=== PATIENT | male | born 1995 | race Caucasian/White ===

== ENCOUNTER 2020-04-21 00:34 | Emergency (ER) | payer MEDICAID, OTHER, SELFPAY ==
[2020-04-21 00:39] VITALS: BP 131/76; PULSE 71; RESP 18; TEMP 37.7; O2SAT 99; BMI 18.4
--- NOTE | 2020-04-21 00:51 | ED.GENADULT ---
HPI - General Adult General Chief complaint: General Medical Stated complaint: Headache/Chills Time Seen by Provider: 04/21/20 00:36 Source: patient Mode of arrival: ambulatory Limitations: no limitations History of Present Illness HPI narrative: This is a 25-year-old male who presents after having been tested for COVID-19 2 weeks ago and was negative at that time but comes in with low fevers, cough, and concern for exposure at his family's store. In addition, patient is having body aches but denies any sore throat. Otherwise, patient denies any shortness of breath, chest pain / palpitations, GI symptoms, or symptoms. Related Data Allergies Allergy/AdvReac Type Severity Reaction Status Date / Time cuenca [CHERRIES] Allergy Unknown RASH/HIVES Verified 04/21/20 00:39 Review of Systems Review of Systems: Pertinent positives and negatives as stated in HPI 10 point review of systems is otherwise negative. PMFSH Past Medical History Source: nursing notes reviewed Medical History Ulcer Social History Social History Advance Directives: No Physical Exam Vital Signs: Vital Signs: Vital Signs Temp Pulse Resp BP Pulse Ox 04/21/20 00:39 99.8 F 71 18 131/76 99 Body Mass Index 18.4 VITAL SIGNS: Reviewed. GENERAL: Well developed, well nourished, in no acute distress. HEAD: Normocephalic/atraumatic, EYES: PERRLA, EOMI intact without pain, no nystagmus/pallor/icterus noted EARS: Ext canals without abnormality, TMs non-bulging and non-erythematous NOSE: Nares patent bilateral OROPHARYNX: no oral lesions noted, posterior pharynx clear and non-erythematous without noted tonsillar enlargement/erythema/exudates NECK: Supple, no adenopathy LUNGS: Normal breath sounds. No adventitious sounds or accessory muscle use. SpO2<99> CARDIOVASCULAR: Regular rate and rhythm without noted murmurs, no JVD or lower extremity edema. ABDOMEN: Soft, non-tender, non-distended with bowel sounds. No rigidity. No guarding. No palpable masses or hernias noted MUSCULOSKELETAL: No tenderness, deformities, or effusions noted on gross inspection. EXTREMITIES: No cyanosis, clubbing or edema. SKIN: Inspection of the skin reveals no rashes, ulcerations, jaundice, pallor, or petechiae. NEUROLOGIC: Alert and oriented x 4. Strength and sensation to light touch were grossly intact x 4. Course Course Course Narrative: This is a 25-year-old male with history and clinical presentation consistent with viral syndrome. There is no evidence of hypoxemia or patient being febrile. He will be swabbed for COVID-19 and was given instructions to self quarantine until he was called with results and discharged in stable condition. Discharge Plan Discharge Clinical Impression: Acute viral syndrome Patient Disposition: Home, Self-Care Instructions: Viral Syndrome (ED) Additional Instructions: 1. Tylenol 1000 mg, por v?a oral, cada 6 horas seg?n sea necesario para la temperatura y los ivana corporales. No exceda los 4000 mg en 24 horas. 2. Ibuprofeno 400 mg, por v?a oral con leche o alimentos, cada 6 horas seg?n sea necesario para la temperatura y los ivana corporales. 3. Incrementar la hidrataci?n de los fluidos especialmente con agua. 4. Debe permanecer en cuarentena hasta que lo llamen con los resultados de lee prueba COVID-19. 5. Regrese al departamento de emergencias si contin?a teniendo fiebre a pesar del tratamiento con Tylenol / ibuprofeno o si empeora la dificultad para respirar. El paciente y / o la angela reconocen kinjal comprendido los resultados (seg?n corresponda), el diagn?stico, el plan de tratamiento, la necesidad de seguimiento y los s?ntomas que deber?an impulsar el regreso a la nathalie de emergencias. Referrals: Physician,None [Primary Care Provider] - 2 days Print Language: Belarusian
== END 2020-04-21 01:09 | disposition home or self-care (01) ==
PROVIDERS: Emergency Provider Student in an Organized Health Care Education/Training Program
DX: B34.9 Viral infection, unspecified (principal); R51.9 Headache, unspecified; Z20.828 Contact with and (suspected) exposure to other viral communicable diseases
CPT/HCPCS: 99283; U0003

== ENCOUNTER 2020-04-29 14:59 | Outpatient (REF) | payer MEDICAID, SELFPAY | END 2020-04-29 15:00 | disposition home or self-care (01) | LOC: HO.LAB 14:59 | PROVIDERS: Visit Provider Internal Medicine | DX: Z20.828 Contact with and (suspected) exposure to other viral communicable diseases (principal) | CPT/HCPCS: C9803; U0003 ==

== ENCOUNTER 2020-06-17 16:35 | Outpatient (REF) | payer MEDICAID, SELFPAY | END 2020-06-17 16:36 | disposition home or self-care (01) | LOC: HO.LAB 16:35 | PROVIDERS: Visit Provider Internal Medicine | DX: Z20.828 Contact with and (suspected) exposure to other viral communicable diseases (principal) | CPT/HCPCS: C9803; U0003 ==

== ENCOUNTER 2020-07-29 13:59 | Outpatient (REF) | payer MEDICAID, OTHER, SELFPAY | END 2020-07-29 14:00 | disposition home or self-care (01) | LOC: HO.LAB 13:59 | PROVIDERS: Visit Provider Internal Medicine | DX: Z20.822 Contact with and (suspected) exposure to COVID-19 (principal) | CPT/HCPCS: 36415; C9803; U0003; U0005 ==

== ENCOUNTER 2020-08-14 16:00 | Outpatient (REF) | payer MEDICAID, OTHER, SELFPAY | END 2020-08-14 16:01 | disposition home or self-care (01) | LOC: HO.LAB 16:00 | PROVIDERS: Visit Provider Internal Medicine | DX: Z20.822 Contact with and (suspected) exposure to COVID-19 (principal) | CPT/HCPCS: 36415; C9803; U0003; U0005 ==

== ENCOUNTER 2020-08-21 15:58 | Outpatient (REF) | payer MEDICAID, OTHER, SELFPAY | END 2020-08-21 15:59 | disposition home or self-care (01) | LOC: HO.LAB 15:58 | PROVIDERS: Visit Provider Internal Medicine | DX: Z20.822 Contact with and (suspected) exposure to COVID-19 (principal) | CPT/HCPCS: 36415; C9803; U0003; U0005 ==

== ENCOUNTER 2021-12-18 09:22 | Emergency (ER) | payer MEDICAID, OTHER, SELFPAY ==
--- NOTE | ~2021-12-18 | XR_ITS ---
EXAMINATION: XR RIBS, LEFT CLINICAL INFORMATION: Fall COMPARISON: Previous chest x-ray November 2019 TECHNIQUE: 3 views of the left ribs and one view of the chest were obtained. FINDINGS: Lungs are clear. No consolidation, pneumothorax, or pleural effusion. The cardiomediastinal silhouette and pulmonary vasculature are normal. Osseous structures are unremarkable. Ribs are intact. No fractures are identified. XR/XR ribs LT min 3V w CXR1V IMPRESSION: Unremarkable examination.
--- NOTE | ~2021-12-18 | XR_ITS ---
EXAMINATION: XR KNEE, LEFT CLINICAL INFORMATION: Pain, swelling in limb COMPARISON: None TECHNIQUE: Four views of the left knee. FINDINGS: Bone alignment is normal. No fracture or dislocation is seen. The joint spaces are normal. There is no joint effusion. There may be mild soft tissue swelling over the upper anterior knee/patella and quadriceps tendon. XR/XR knee LT 4V IMPRESSION: No fracture or dislocation. Mild soft tissue swelling over the upper anterior knee.
--- NOTE | ~2021-12-18 | XR_ITS ---
EXAMINATION: XR ELBOW, LEFT CLINICAL INFORMATION: Fall. Pain. COMPARISON: None TECHNIQUE: AP, lateral, and oblique views of the left elbow. FINDINGS: The bones and soft tissues are normal. No fracture or joint effusion. Alignment is anatomic. Joint spaces are maintained. XR/XR elbow LT 2V IMPRESSION: Normal left elbow.
[2021-12-18 09:25] VITALS: BP 115/61; PULSE 64; RESP 18; TEMP 36.7; O2SAT 98; BMI 19.8
--- NOTE | 2021-12-18 10:19 | ED_ITS ---
HPI - Fall General Chief Complaint: Fall Stated Complaint: Fall T-1/L elbow & knee pain Time Seen by Provider: 12/18/21 09:40 Source: patient Mode of arrival: ambulatory History of Present Illness HPI Narrative: 26-year-old male with no significant past medical history presenting to the ED complaining of left elbow, left knee, left-sided rib pain s/p mechanical trip and fall on cement while playing with sun yesterday. Denies symptoms prior to fall, head trauma or LOC. Admits to abrasions to elbow and knee which he has been putting triple antibiotic ointment on. Ambulating with pain. Denies neck/back pain, numbness, tingling, weakness, SOB complaint: fall Onset (ago): day(s) Fall from: standing Related Data Previous Rx's Medication Instructions Recorded bacitracin 500 unit/gram topical 1 appl topical BID #30 grams 12/18/21 ointment ibuprofen 800 mg tablet 800 mg PO Q8H PRN pain #14 tabs 12/18/21 Allergies Allergy/AdvReac Type Severity Reaction Status Date / Time cuenca [CHERRIES] Allergy Unknown RASH/HIVES Verified 12/18/21 09:29 Review of Systems Review of Systems: Constitutional: No Fever, No Chills ENT/Mouth: No Ear Pain, No Nasal Congestion, No Sinus Pain, No Hoarseness, No sore throat, No Rhinorrhea, No Swallowing Difficulty Cardiovascular: + Chest wall pain, No SOB Respiratory: No Cough, No Sputum, No Wheezing Gastrointestinal: No Nausea, No Vomiting, No Diarrhea, No Constipation, No Abdominal pain Genitourinary: No Dysuria, No Urinary Frequency, No Hematuria, No Urinary Incontinence/retention, No Urgency, No Flank Pain Musculoskeletal: + joint pain, No Myalgias, No Joint Swelling Skin: + Skin Lesions, No rash Neuro: No Weakness, No Numbness, No Paresthesias Yes all other systems are reviewed and are negative [facility] Past Medical History Attestation statement: The following information was validated with the patient. Medical History Ulcer Social History Social History Advance Directives: No Advance Directives Information Provided: No Physical Exam Vital Signs: Vital Signs: Last Vital Signs Temp 98.1 F 12/18/21 09:25 Pulse 64 12/18/21 09:25 Resp 18 12/18/21 09:25 BP 115/61 12/18/21 09:25 Pulse Ox 98 12/18/21 09:25 O2 Del Method 12/18/21 09:25 BMI result Body Mass Index 19.8 Const: General: cooperative, healthy appearing and no acute distress Orientation/consciousness: patient oriented x3 Limitations: no limitations HEENT: Head: Yes normal to inspection and Yes atraumatic Ears: hearing grossly normal bilaterally General nose exam: Normal external nose present Face and sinus: Yes normal facial exam Eyes: General: appearance normal, both eyes and all related structures EOM: EOMs intact bilaterally Neck: Other: No midline cervical spinous tenderness Neck: Yes normal visual inspection and Yes no meningeal signs Chest: Other: + left-sided anterior lateral chest wall abrasions with mild tenderness. No crepitus. No flail chest. No ecchymosis Resp: Effort & Inspection: normal respiratory effort and no respiratory distress Auscultation: clear to auscultation bilaterally Cardio: Rate: regular rate Heart sounds: S1 normal heart sound present and S2 normal heart sound present GI: Inspection: Yes normal to inspection Palpation (GI): Soft to palpation, nontender, no guarding and not rigid : General: Yes no CVA tenderness Back/Spine/Pelvis: Other: No midline thoracic/lumbar spinous tenderness/step-off or deformity Back: no CVA tenderness Skin: Rashes: no rashes Wounds: no wounds Neuro: General: patient oriented x3, tone normal and no meningeal signs Gait exam (Neuro): Normal gait present Extrem: Other: Left elbow with noted abrasion. Nontender. Full range of motion intact including pronation/supination. Neurovascular intact distally Left knee with mild swelling and overlying abrasion. Tender to palpation. De creased full flexion and extension secondary to pain. Neurovascular intact distally Course Course Course Narrative: XR knee LT 4V IMPRESSION: No fracture or dislocation. Mild soft tissue swelling over the upper anterior knee. XR elbow LT 2V IMPRESSION: Normal left elbow. ? XR ribs LT min 3V w CXR1V IMPRESSION: Unremarkable examination. >> results discussed with patient with historical interpreter including worrisome signs and symptoms and strict return precautions. Alberto wrap apply to me for com fort and stability Procedures Orthopedic Splinting/Casting Injury #1: Side: left Lower Extremity Injury Location: knee Lower Extremity Immobilizer: Alberto wrap MDM - Fall MDM Narrative Medical decision making narrative: 26-year-old male with no significant past medical history presenting to the ED complaining of left elbow, left knee, left-sided rib pain s/p mechanical trip and fall on cement while playing with sun yesterday. On exam vital signs stable, NAD, nontoxic appearing, physical exams above. Concern for abrasions with sprain burst fractures. Low suspicion for intra-abdominal hematoma/bleeding Plan: X-rays, wound care Medical Records Attestation: I reviewed the patient's medical records. Lab Data Attestation: I reviewed the patient's lab results. Discharge Plan Discharge Clinical Impression: Abrasion, Fall, Acute knee pain, Rib contusion, Elbow pain Patient Disposition: Home, Self-Care Instructions: Bone Bruise (ED) Additional Instructions: Your x-rays do not show any acute fractures/breaks. You likely sprained your knee and have rib contusions/bruising Ice painful areas. Wear Alberto wrap for comfort and stability. Take Tylenol and Motrin for pain and swelling Continue to apply antibacterial ointment to your clots If areas look infected, or read, there is drainage or symptoms persist/worsen return to the emergency department Yane radiograf?as no muestran fracturas/roturas agudas. Es probable que se haya torcido la rodilla y tenga contusiones o moretones en las costillas Hielo en las ?reas dolorosas. Use la venda Alberto para mayor comodidad y estabilidad. [place] Tylenol y Motrin para el dolor y la hinchaz?n. Contin?e aplicando pomada antibacteriana a yane co?gulos Si las ?reas se baljeet infectadas o mayuri, hay drenaje o los s?ntomas persisten/empeoran, regrese al departamento de emergencias. Prescriptions: New bacitracin 500 unit/gram ointment 1 appl topical BID Qty: 30 0RF ibuprofen 800 mg tablet 800 mg PO Q8H PRN (Reason: pain) Qty: 14 0RF Referrals: Physician,None [Primary Care Provider] - 1 week (As needed) Print Language: Syriac
== END 2021-12-18 12:08 | disposition home or self-care (01) ==
PROVIDERS: Emergency Provider Emergency Medicine Emergency Medical Services
DX: S80.212A Abrasion, left knee, initial encounter (principal); S20.213A Contusion of bilateral front wall of thorax, initial encounter; M25.522 Pain in left elbow; R07.89 Other chest pain; W01.0XXA Fall on same level from slipping, tripping and stumbling without subsequent striking against object, initial encounter; Y93.9 Activity, unspecified; Y92.9 Unspecified place or not applicable; Y99.9 Unspecified external cause status; Z79.899 Other long term (current) drug therapy
CPT/HCPCS: 29505; 71101; 73070; 73564; 99283

== ENCOUNTER 2022-06-17 16:47 | Emergency (ER) | payer MEDICAID, OTHER, SELFPAY ==
--- NOTE | 2022-06-17 17:01 | ED_ITS ---
HPI - URI/Sore Throat General Chief Complaint: Upper Respiratory Symptoms Stated Complaint: flu like symptoms Time Seen by Provider: 06/17/22 18:13 Source: patient and steward/stewardess banquet Mode of arrival: ambulatory Limitations: language barrier History of Present Illness HPI Narrative: 27-year-old male here with flu-like symptoms since yesterday. Patient reports he was around several friends yesterday he with similar symptoms. Related Data Previous Rx's Medication Instructions Recorded bacitracin 500 unit/gram topical 1 appl topical BID #30 grams 12/18/21 ointment Allergies Allergy/AdvReac Type Severity Reaction Status Date / Time cuenca [CHERRIES] Allergy Unknown RASH/HIVES Verified 12/18/21 09:29 Review of Systems Review of Systems: Yes all other systems are reviewed and are negative Constitutional: Constitutional: Reports no additional constitutional complaints, Reports body ache(s), Reports chills, Reports fever(s), Reports headache(s) and Denies weakness Eyes: Eyes: Reports no additional eye complaints and Denies change in vision ENT: Reports system reviewed and no additional complaints, except as documented, Denies dizziness, Reports headache(s), Denies nasal congestion, Denies nasal discharge and Denies neck pain Cardiovascular: Cardiovascular: Reports no additional cardiovascular complaints, Denies chest pain, Denies leg edema and Denies dyspnea Respiratory: Respiratory: Reports no additional respiratory complaints, Denies cough and Denies dyspnea Gastrointestinal: Gastrointestinal: Reports no additional gastrointestinal complaints, Denies abdominal pain, Denies diarrhea, Denies nausea and Denies vomiting Genitourinary: Genitourinary: Denies urinary incontinence Musculoskeletal: Musculoskeletal: Reports no additional musculoskeletal complaints, Denies back pain, Denies arthralgias, Denies joint swelling, Denies neck pain, Denies numbness and Denies tingling Integumentary/Breasts: Skin/Breast: Reports system reviewed and no additional complaints, except as docu and Denies rash Neurologic: Reports system reviewed and no additional complaints, except as documented, Denies Abnormal speech present, Denies dizziness, Reports headache(s), Denies numbness, Denies tingling and Denies weakness PMFSH Past Medical History Attestation statement: The following information was validated with the patient. Source: old records reviewed and nursing notes reviewed Medical History Ulcer Social History Social History Advance Directives: No Advance Directives Information Provided: No Physical Exam Vital Signs: Vital Signs: Last Vital Signs Temp 99.8 F 06/17/22 17:02 Pulse 104 H 06/17/22 17:02 Resp 18 06/17/22 17:02 BP 101/70 06/17/22 17:02 Pulse Ox 98 06/17/22 17:02 O2 Del Method 06/17/22 17:02 BMI result Body Mass Index 20.0 Const: General: cooperative, healthy appearing, comfortable and no acute distress Orientation/consciousness: patient oriented x3 Limitations: no limitations HEENT: Head: Yes normal to inspection Ears: hearing grossly normal bilaterally and TM's normal bilaterally General nose exam: Normal external nose present Face and sinus: Yes normal facial exam Mouth: Normal oral and palatal mucosa present Throat: Yes posterior oropharynx normal, Yes tonsils normal and Yes uvula midline Eyes: General: appearance normal, both eyes and all related structures Pup ils: Equal, round and reactive pupils present Neck: Neck: Yes normal visual inspection, Yes full ROM, Yes no lymphadenopathy and Yes no meningeal signs Chest: Chest palpation & inspection: normal inspection of the chest Resp: Effort & Inspection: normal respiratory effort Auscultation: clear to auscultation bilaterally Cardio: Rate: regular rate Rhythm: regular rhythm Peripheral pulses: Peripheral pulses 2+ throughout GI: Inspection: Yes normal to inspection Palpation (GI): Soft to palpation and nontender Auscultation: normal bowel sounds Back/Spine/Pelvis: Thoracic/Lumbar Spine: thoracic and lumbar spine normal to inspection Skin: General skin exam: no rashes or lesions noted Neuro: General: patient oriented x3, no meningeal signs, no focal motor deficits and normal sensation to monofilament Cranial nerves: Yes Equal, round and reactive pupils present Cognition (Neuro): normal cognition Speech: No Abnormal speech present Gait exam (Neuro): Normal gait present Motor exam (neuro): 5/5 motor strength present throughout Extrem: General: Yes normal to inspection Course Course Course Narrative: This is a rapid medical exam. Deferred additional HPI, ROS and PE to primary provider. 27 yo male with history of heart murmur here with complaints of headache, chils, fever, back pain, body aches, since yesterday. Has been around friends who have had similar symptoms. Will send testing for flu, covid, rsv. VSS. Reevaluation(s) Reevaluation #1: This screen positive. Vitals are stable. Lungs are clear. Patient recommended to go home with supportive care. Reviewed worrisome signs and symptoms of when to return to the emergency room. Comfortable plan for discharge home. Medical Decision Making Medical Decision Making [facility] Narrative: 27-year-old male here with flu-like symptoms since yesterday. Will send testing for flu, COVID, RSV. Vitals are stable Differential Diagnosis Differential Diagnoses: The differential diagnosis associated with the presentation includes Influenza, viral syndrome Lab Data [facility] Lab Attestation statement: I reviewed the patient's lab results. Labs: Lab Results 06/17/22 Range/Units 17:12 Influenza Type A (PCR) POSITIVE A (Negative) Influenza Type B (PCR) NEGATIVE (Negative) RSV RNA Qual (PCR) NEGATIVE (Negative) SARS-CoV-2 RNA (RT-PCR) NEGATIVE (Negative) Prescription Management I considered prescription management with: Antiviral Flu screen is positive. Patient aware Tamiflu is available if he desires this. He declined treatment with Tamiflu. Discharge Plan Discharge Clinical Impression: Influenza Patient Disposition: Home, Self-Care Instructions: Influenza (ED) Additional Instructions: La prueba de gripe es negativa. Las pruebas de COVID y RSV son negativas. Aumenta los l?quidos, descansa. [place]terne Motrin y Tylenol para el dolor o la fiebre seg?n sea necesario. Prescriptions: No Action bacitracin 500 unit/gram ointment 1 appl topical BID Qty: 30 0RF Referrals: Physician,None [Primary Care Provider] - Print Language: Turkmen
[2022-06-17 17:02] VITALS: BP 101/70; PULSE 104; RESP 18; TEMP 37.7; O2SAT 98
--- OUTSIDE RECORDS SUMMARY | 2022-06-17 17:16 | XMS_ITS ---
:1995 Author Organization [facility] Address [address] [place] [address] Care Team Providers Name Role Phone Atif Shah Unavailable Unavailable PROBLEMS Type Condition ICD9-CM Code PXT81-SM Code Onset Condition SNO MED Code Dates Status Problem Gastritis, K29.70 Active 539818166 unspecified, without bleeding Problem Duodenal ulcer K26.4 Active 82123 001 with hemorrhage Problem Helicobacter B96.81 Active 2609977 0 pylori [H. pylori] as the cause of diseases classified elsewhere ALLERGIES Substance Reaction Event Type Date Status cherries Unknown Non Drug Allergy Apr, Active NSAID Unknown Non Drug Allergy Apr, Active Aspirin Unknown Drug Allergy Apr, Active ENCOUNTERS Encounter Location Date Diagnosis [place] [address] Apr, Duodenal ulcer with [facility] [address] [place], [place] hemorrhage K26.4 ; [id number] Gastritis, unspe cified, without bleeding K29.70 and Helicobacter pylori [H. pylori] as t he cause of diseases clas sified elsewhere B96.[address] Mar, [facility] [address] [place] [address] Dec, [facility] [address] [place] [address] IMMUNIZATIONS No Known Immunizations SOCIAL HISTORY Qualifiers Date Never Smoker REASON FOR REFERRAL FUNCTIONAL STATUS PLAN OF CARE Activity Details Follow Up prn Reason: VITAL SIGNS Weight 146 lbs 2020-04-22 Height 74 in 2020-04-22 BMI 18.74 kg/m2 2020-04-22 Temperature 98.2 degrees Fahrenheit 2020-04-22 Blood pressure systolic 000 mm Hg 2020-04-22 Blood pressure diastolic 00 mm Hg 2020-04-22 MEDICATIONS Medication Instructions Dosage Frequency Start End Date Duration Stat us Tylenol Active Famotidine 20 TAKE 1 TABLET 30 Acti ve MG BY MOUTH EVERY DAY AT BEDTIME START AFTER YOU HAVE FINISHED OMEPRAZOLE Omeprazole 20 Orally BID 1 12h 12 Dec, 10 days Active MG 2019 PROCEDURES Procedure Date Ordered Result Body Site UPPER GI ENDOSCOPY, BIOPSY December 17, 2019 PRECOLON VISIT MEDICARE MEDICAID GIC Apr 22, 2020 RESULTS Name Result Date Reference Range GI BIOPSY 2019-12-17 G.I. BIOPSY REASON FOR VISIT patient presents today for Ulcers , patient presents today for ulcer, ulcer, cancel appt Insurance Providers [facility] Health Member Patient Patient Patient Patient Patient Subscriber Subscriber Subscriber Group Insurance Plan Plan Plan Plan ID Relationship Address Phone Name Date of ID Name Date of No Type Insurance Insurance Insurance Coverage to Subscriber Address Phone Name Dates MEDICAID [id number] MEDICAID self TAE [id number] OF [facility] [address] [facility] [address] [facility] [place] [id number]
[2022-06-17 17:58] LABS: Influenza A PCR POSITIVE (Negative); Influenza B PCR NEGATIVE (Negative); Resp Syncy Virus RNA Qual PCR NEGATIVE (Negative); SARS COV2 PCR INHOUSE NEGATIVE (Negative)
== END 2022-06-17 18:20 | disposition home or self-care (01) ==
PROVIDERS: Nurse Practitioner Family; Emergency Provider Emergency Medicine
DX: J11.1 Influenza due to unidentified influenza virus with other respiratory manifestations (principal); R50.9 Fever, unspecified; Z20.822 Contact with and (suspected) exposure to COVID-19
CPT/HCPCS: 0241U; 99282; 99283

== ENCOUNTER 2023-06-17 14:19 | Emergency (ER) | payer MEDICAID, OTHER, SELFPAY ==
[2023-06-17 14:54] VITALS: BP 117/82; PULSE 59; RESP 16; TEMP 37.2; O2SAT 99; BMI 18.6
--- NOTE | 2023-06-17 15:04 | ED_ITS ---
HPI - General Adult General Chief complaint: Eye Problems Stated complaint: ? [facility] Both Eyes Time Seen by Provider: 06/17/23 14:57 Source: patient Mode of arrival: ambulatory Limitations: no limitations History of Present Illness HPI narrative: Patient is a 28-year-old male presenting to emergency department with complaint of bilateral eye itching, redness and discharge for 3 days. Denies contact lens use. Reports children had similar symptoms approximately 1 month ago. He denies any other symptoms. Denies blurred vision or other visual changes. Using Visine eyedrops without relief. MD complaint: eye redness Onset (ago): day(s) Location: eyes Associated symptoms: denies other symptoms Treatments prior to arrival: other Related Data Previous Rx's Medication Instructions Recorded bacitracin 500 unit/gram topical 1 appl topical BID #30 grams 12/18/21 ointment ofloxacin 0.3 % eye drops See Rx Instructions ophthalmic 06/17/23 (eye) .COMPLEX #10 mL Allergies Allergy/AdvReac Type Severity Reaction Status Date / Time cuenca [CHERRIES] Allergy Unknown RASH/HIVES Verified 06/17/23 14:54 Review of Systems Review of Systems: As per HPI. Yes all other systems are reviewed and are negative Constitutional: Constitutional: Reports as per HPI [facility] Past Medical History Medical History Ulcer Social History Social History Advance Directives: No Advance Directives Information Provided: No Physical Exam ED Vital Signs: Vital Signs - 24 hr 06/17/23 14:54 Temperature 98.9 F Pulse Rate 59 Respiratory Rate 16 Blood Pressure 117/82 Pulse Oximetry 99 Oxygen Delivery Method Room Air BMI result Body Mass Index 18.6 Vital signs have been reviewed and appear to be correct. Blood pressure normal. Heart rate normal. Respiratory rate normal. Temperature normal. Oxygen saturation normal. Const General: cooperative, healthy appearing and no acute distress Orientation/consciousness: oriented to person, oriented to place, oriented to time and patient oriented x3 Limitations: no limitations HENMT Head: Yes normocephalic and Yes atraumatic Ears: external ears normal General nose exam: Normal external nose present Face and sinus: Yes face symmetric Mouth: oropharynx normal and moist mucous membranes Throat: Yes uvula midline Eyes Conjunctivae: conjunctival abnormal bilateral conjunctival injection diffuse and discharge Pupils: Equal, round and reactive pupils present Neck Neck: Yes normal visual inspection and Yes supple Resp Effort & Inspection: normal respiratory effort and able to speak in complete sentences Auscultation: clear to auscultation bilaterally Cardio Rate: regular rate Rhythm: regular rhythm Heart sounds: S1 normal heart sound present and S2 normal heart sound present Skin General skin exam: elasticity normal and turgor normal Neuro General: oriented to person, oriented to place, oriented to time, patient oriented x3, moves all extremities, no focal motor deficits and CN's II-XI intact bilaterally Cranial nerves: Yes Equal, round and reactive pupils present Cognition (Neuro): normal cognition Extrem General: Yes full ROM Psych Mental Status: mental status grossly normal Affect: normal affect Thought process: Normal thought process present Medical Decision Making Medical Decision Making MDM Narrative: Patient is a 28-year-old male presenting to emergency department with complaint of bilateral eye itching, redness and discharge for 3 days. On exam patient is awake, A+Ox3, VS WNL, afebrile, normal neurological exam without focal deficits, physical exam findings as above. Given reported symptoms and physical exam findings, initial differential includes viral vs bacterial conjunctivitis. Will treat with ofloxacin drops. Stressed importance of good hand hygiene. Instructed patient follow-up with PCP. Return precautions discussed. Patient verbalized understanding of and agreement with plan. Differential Diagnosis Differential Diagnoses: The differential diagnosis associated with the presentation includes As per MDM. External Record Review External record reviewed: Inpatient record, Office record and Outpatient record Prescription Management I considered prescription management with: Antibiotic Discharge Plan Discharge Clinical Impression: Acute conjunctivitis, bilateral Patient Disposition: Home, Self-Care Instructions: Conjunctivitis (ED) Additional Instructions: Usted fue evaluado hoy en el departamento de emergencias por secreci?n ocular y picaz?n. Est? siendo tratado por conjuntivitis con gotas antibi?sofie para los ojos. Complete el curso completo seg?n lo prescrito. Aixa un seguimiento con lee proveedor de atenci?n primaria esta semana. Regrese al servicio de urgencias si presenta cualquier cambio en la visi?n, empeoramiento del enrojecimiento o drenaje, fiebre o cualquier otro s?ntoma preocupante. Prescriptions: New ofloxacin 0.3 % drops See Rx Instructions .ROUTE .COMPLEX Qty: 10 0RF Rx Instructions: put 1-2 drps into affected eye(s) every 2-4 h x 2 days, then 1-2 drps 4 times/day days 3-7 No Action bacitracin 500 unit/gram ointment 1 appl topical BID Qty: 30 0RF Print Language: Maltese
--- OUTSIDE RECORDS SUMMARY | 2023-06-17 15:04 | XMS_ITS | Patient Health Record ---
Author Name Unknown Organization [facility] Address [address] [place] [address] Care Team Providers Care Database Programmer Analyst Name Role Phone NONE, NONE Primary Care Provider Atif House Unavailable [phone] ALLERGIES Allergen (clinical drug ingredient) Drug/Non Drug Allergy documented on EMR Reaction Allergy Type Onset Date Status aspirin Aspirin Unknown Drug Allergy Active Non-steroidal anti-inflammatory agent (FN) NSAID (uncoded) Unknown Allergy Active cherries (uncoded) Unknown Allergy A ctive REASON FOR REFERRAL No Information MEDICATIONS Medication SIG (Take, Route, Fr equency, Duration) Notes Start Date End Date Status Famotidine 20 MG TAKE 1 TABLET BY ROBERTO TH EVERY DAY AT BEDTIME START AFTER YOU HAVE FINISHED OMEPRAZOLE Oral for 30 Active Omeprazole 20 MG 1 Orally BID for 10 days 12/30/19 20 Active Tylenol prn Active IMMUNIZATIONS Vaccine Route Administration Date Status Comme nts Influenza Unknown 04/22/2020 Refused SOCIAL HISTORY Tobacco Use: Social History Observation Description Date Details (start date - stop date) Never Smoker NA - NA Sex Assigned At : Social History Observation Description Sex Assigned At Unknown Tobacco Use/Smoking Question Answer Notes Patient is a nonsmoker Alcohol Screen Question Answer Notes Did you have a drink containing alcohol in the p ast year? No Points 0 Interpretation Negative PROBLEMS Problem Type ICD Code Onset Dates Problem Status W/U Status Risk SNOMED Code Notes Problem Duodenal ulcer with hemorrhage (K26.4) Active confirmed Duodenal ulcer with hemorrhage (19528524) Problem Gastritis, unspecified, without bleeding (K29.70) Active confirmed Gastroduodeniti s (882718661) Problem Helicobacter pylori [H. pylori] as the cause of diseases classified elsewhere (B96.81) Active confirmed Helicobacter py sharri (30153966) PLAN OF TREATMENT No Information MEDICAL (GENERAL) HISTORY Medical History History ICD Code Denies [place],DM,CVA,Lung disease,renal dise ase UGI Bleed in 12/2019 while on NSAIDs--EGD with a duodenal ulcer and gastritis-gastric Bx + for Hpylori--treated with Omeprpazole, Amoxicillin, and Clarithromycin for 10 days Surgical History Surgery Date(Month/Year) Right hand surgery
== END 2023-06-17 15:17 | disposition home or self-care (01) ==
PROVIDERS: Emergency Provider Emergency Medicine
DX: H10.33 Unspecified acute conjunctivitis, bilateral (principal); H57.89 Other specified disorders of eye and adnexa
CPT/HCPCS: 99282; 99283

== ENCOUNTER 2023-06-18 15:16 | Emergency (ER) | payer MEDICAID, OTHER, SELFPAY ==
[2023-06-18 15:23] VITALS: BP 100/62; PULSE 66; RESP 16; TEMP 36.6; O2SAT 100; BMI 18.6
--- NOTE | 2023-06-18 15:26 | ED.GENADULT ---
HPI - General Adult General Chief complaint: Wound/Laceration Stated complaint: Finger lac Related Data Previous Rx's ?Medication ?Instructions ?Recorded bacitracin 500 unit/gram topical 1 appl topical BID #30 grams 12/18/21 ointment ofloxacin 0.3 % eye drops See Rx Instructions ophthalmic 06/17/23 (eye) .COMPLEX #10 mL Allergies Allergy/AdvReac Type Severity Reaction Status Date / Time cuenca [CHERRIES] Allergy Unknown RASH/HIVES Verified 06/18/23 15:23 [facility] Past Medical History Medical History Ulcer Social History Social History Advance Directives: No Advance Directives Information Provided: No Physical Exam ED Vital Signs: BMI result Body Mass Index 18.6 Course Course Course Narrative: RME- 28-year-old male presents for evaluation of a laceration to his right 2nd finger. On exam he has a 1 x 2 cm skin avulsion, no deep laceration. Discharge Plan Discharge Clinical Impression: Laceration Patient Disposition: Left W/O Completing Treatment Prescriptions: No Action bacitracin 500 unit/gram ointment 1 appl topical BID Qty: 30 0RF ofloxacin 0.3 % drops See Rx Instructions .ROUTE .COMPLEX Qty: 10 0RF Rx Instructions: put 1-2 drps into affected eye(s) every 2-4 h x 2 days, then 1-2 drps 4 times/day days 3-7 Discharge Date/Time: 06/18/23 17:22
--- OUTSIDE RECORDS SUMMARY | 2023-06-18 17:19 | XMS_ITS | Patient Health Record ---
Author Name Unknown Organization [facility] Address [address] [place] [address] Care Team Providers Care Claim Benefit Specialist Name Role Phone NONE, NONE Primary Care Provider [facility] Unavailable [phone] ALLERGIES Allergen (clinical drug ingredient) Drug/Non Drug [...] (K26.4) Active confirmed Duodenal ulcer with hemorrhage (34340598) Problem Gastritis, unspecified, without bleeding (K29.70) Active confirmed Gastroduodeniti s (169572887) Problem Helicobacter pylori [H. pylori] as the cause of diseases classified elsewhere (B96.81) Active confirmed Helicobacter py sharri (17313976) PLAN OF TREATMENT No Information MEDICAL (GENERAL) HISTORY Medical History History ICD Code Denies AR,DM,CVA,Lung disease,renal dise ase UGI Bleed in 12/2019 while on NSAIDs--EGD with a duodenal ulcer and gastritis-gastric Bx + for Hpylori--treated with Omeprpazole, Amoxicillin, and Clarithromycin for 10 days Surgical History Surgery Date(Month/Year) Right hand surgery
== END 2023-06-18 17:22 | disposition left against medical advice (07) ==
PROVIDERS: Emergency Provider Emergency Medicine
DX: S61.210A Laceration without foreign body of right index finger without damage to nail, initial encounter (principal); W26.9XXA Contact with unspecified sharp object(s), initial encounter; Y93.9 Activity, unspecified; Y92.9 Unspecified place or not applicable; Y99.9 Unspecified external cause status
CPT/HCPCS: 99281

== ENCOUNTER 2023-06-18 19:07 | Emergency (ER) | payer MEDICAID, OTHER, SELFPAY ==
[2023-06-18 19:57] VITALS: BP 96/64; PULSE 71; RESP 18; TEMP 36.2; O2SAT 97; BMI 18.6
[2023-06-19 05:08] VITALS: BP 117/74; PULSE 63; RESP 20; TEMP 36.6; O2SAT 99
--- NOTE | 2023-06-19 05:12 | PC.NURSE ---
After triage reassessment pt stated he was leaving and that he had been here too long. Registration staff made aware.
--- OUTSIDE RECORDS SUMMARY | 2023-06-19 05:13 | XMS_ITS | Patient Health Record ---
Author Name Unknown Organization [facility] Address [address] [place] [address] Care Team Providers Care Corporate Specialist Name Role Phone NONE, NONE Primary Care Provider [facility] Unavailable [phone] ALLERGIES Allergen (clinical drug ingredient) Drug/Non Drug [...] (K26.4) Active confirmed Duodenal ulcer with hemorrhage (62866899) Problem Gastritis, unspecified, without bleeding (K29.70) Active confirmed Gastroduodeniti s (207068844) Problem Helicobacter pylori [H. pylori] as the cause of diseases classified elsewhere (B96.81) Active confirmed Helicobacter py sharri (31221222) PLAN OF TREATMENT No Information MEDICAL (GENERAL) HISTORY Medical History History ICD Code Denies [place],DM,CVA,Lung disease,renal dise ase UGI Bleed in 12/2019 while on NSAIDs--EGD with a duodenal ulcer and gastritis-gastric Bx + for Hpylori--treated with Omeprpazole, Amoxicillin, and Clarithromycin for 10 days Surgical History Surgery Date(Month/Year) Right hand surgery
== END 2023-06-19 05:13 | disposition left against medical advice (07) ==
PROVIDERS: Emergency Provider Emergency Medicine
DX: S61.219A Laceration without foreign body of unspecified finger without damage to nail, initial encounter (principal); X58.XXXA Exposure to other specified factors, initial encounter; Y93.9 Activity, unspecified; Y92.9 Unspecified place or not applicable; Y99.9 Unspecified external cause status
CPT/HCPCS: 99281

== ENCOUNTER 2023-12-23 14:45 | Emergency (ER) | payer SELFPAY ==
[2023-12-23 15:05] VITALS: BP 115/73; PULSE 63; RESP 18; TEMP 36.5; O2SAT 99; BMI 19.9
--- NOTE | 2023-12-23 15:06 | ED_ITS ---
HPI - General Adult General Chief complaint: Skin/Abscess/Foreign Body Stated complaint: Rash all over body Time Seen by Provider: 12/23/23 19:17 Source: patient Mode of arrival: ambulatory Limitations: no limitations History of Present Illness ED Provider: DR. Lloyd HPI narrative: 28-year-old male otherwise healthy presented for evaluation of diffuse hives on his body for the past 5-6 days. No exposure to a new medication, no history of starting a new soap or detergent. No other sick contacts. Patient started the rash after he slipped over by his cousin's house. Complain of itching. No voice change, no shortness of breath, no upper airway swelling or stridorous. Related Data Previous Rx's ?Medication ?Instructions ?Recorded bacitracin 500 unit/gram topical 1 appl topical BID #30 grams 12/18/21 ointment ofloxacin 0.3 % eye drops See Rx Instructions ophthalmic 06/17/23 (eye) .COMPLEX #10 mL diphenhydramine HCl 25 mg capsule 25 mg PO TID PRN itching #20 caps 12/23/23 (Benadryl) prednisone 20 mg tablet 20 mg PO BID #10 tabs 12/23/23 Allergies Allergy/AdvReac Type Severity Reaction Status Date / Time cuenca [CHERRIES] Allergy Unknown RASH/HIVES Verified 12/23/23 15:08 Review of Systems Review of Systems: All other systems are reviewed and are negative Constitutional: Reports as per HPI and Reports no additional constitutional complaints Eyes: Reports as per HPI and Reports no additional eye complaints Reports system reviewed and no additional complaints, except as documented Cardiovascular: Reports as per HPI and Reports no additional cardiovascular complaints Respiratory: Reports as per HPI and Reports no additional respiratory complaints Gastrointestinal: Reports as per HPI and Reports no additional gastrointestinal complaints Genitourinary: Reports no additional female genitourinary complaints Musculoskeletal: Reports no additional musculoskeletal complaints Skin/Breast: Reports system reviewed and no additional complaints, except as docu Psychiatric: Reports no additional psychiatric complaints Endocrine: Reports no additional endocrine complaints Hematologic/Lymphatic: Reports no additional hematologic/lymphatic complaints Allergic/Immunologic: Reports no additional allergic/immunologic complaints Reports system reviewed and no additional complaints, except as documented and Reports Abnormal speech present [facility] Past Medical History Medical History Ulcer Social History Social History Advance Directives: No Advance Directives Information Provided: No Do you have a plan to hurt others: No Plan Physical Exam ED Vital Signs: Vital Signs - 24 hr 12/23/23 15:05 12/23/23 18:00 Temperature 97.7 F 98.9 F Pulse Rate 63 74 Respiratory Rate 18 16 Blood Pressure 115/73 106/65 Pulse Oximetry 99 100 Oxygen Delivery Method Room Air Room Air BMI result Body Mass Index 19.9 Vital signs have been reviewed and appear to be correct. Blood pressure elevated. Heart rate normal. Respiratory rate normal. Temperature normal. Oxygen saturation normal. Appearance: Alert. Oriented X3. No acute distress. Head: Normal external exam. Normocephalic. Atraumatic. No Terrell signs noted. No raccoon eyes noted Eyes: PERRLA. EOMI. Conjunctiva and sclera normal. Eyelids normal. ENT: TM's Normal. Pharynx normal. Uvula midline. Moist mucous membranes. No trismus noted. No drooling noted. No muffled voice noted. Neck: Normal inspection. Neck supple. FROM. No adenopathy. Thyroid Normal. No meningeal signs. No neck mass noted. CVS: Normal heart rate and rhythm. Heart sound normal. No murmurs noted. Pulses normal throughout. Respiratory: No respiratory distress. Painless inspiration. Breath sounds normal. No wheezes/rales/rhonchi noted. Chest nontender. No accessory muscle usage noted or decreased air movement noted. Abdomen: Soft and nontender. Bowel sounds normal in all 4 quadrants. No distention noted. No organomegaly noted. No visible injury noted. Back: No CVA tenderness. Full range of motion noted. Skin: Diffuse hives covered the torso and 4 extremities. Extremities: No lower extremity edema. Extremities exhibit normal range of motion. Extremities nontender. Neuro: Oriented X 3. Cranial nerve exam: II-XII are grossly intact No motor deficit. No sensory deficit. Reflexes normal. Course Course Course Narrative: This is an RME done by KAROLYN Ibrahim: Additional HPI, ROS, PE not included below will be deferred to primary provider. 28 yo male with no pertinent past medical history presenting with pruritic papular scattered throughout trunk, bilateral upper extremities, spares palms of hands. Denies pain, numbness, paresthesias. No new medications, cleaning products, foods. Appearance: Alert.? Oriented X3.? No acute cardiopulmonary distress distress.? Head: Normocephalic, atraumatic, no step-offs or deformities Neck: Normal inspection.? Neck supple.? CVS: Pulses normal.? Respiratory: No respiratory distress.? Abdomen: Soft and nontender.? Skin: ? Normal skin color. Pruritic, non-erythematous papular rash scattered throughout trunk, bilateral upper extremities. Extremities: 5/5 strength to bilateral upper and lower extremities Back: No midline tenderness, no C-spine tenderness, full range of motion, No CVA tenderness bilaterally Neuro: Oriented X 3.? No motor deficit.? No sensory deficit. Reevaluation(s) Reevaluation #1: Hives of unclear etiology. Start the patient on 5 days of prednisone course, and Benadryl. Time: 19:31 Medical Decision Making Differential Diagnosis Differential Diagnoses: The differential diagnosis associated with the presentation includes (Hives, allergic reaction, contact dermatitis, heat rash.) Admission/Observation Consideration of admission/observation: Escalation of care including admission/observation considered Discharge Plan Discharge Clinical Impression: Hives Patient Disposition: Home, Self-Care Instructions: Acute Rash (ED) Prescriptions: New prednisone 20 mg tablet 20 mg PO BID Qty: 10 0RF diphenhydramine HCl [Benadryl] 25 mg capsule 25 mg PO TID PRN (Reason: itching) Qty: 20 0RF No Action bacitracin 500 unit/gram ointment 1 appl topical BID Qty: 30 0RF ofloxacin 0.3 % drops See Rx Instructions .ROUTE .COMPLEX Qty: 10 0RF Rx Instructions: put 1-2 drps into affected eye(s) every 2-4 h x 2 days, then 1-2 drps 4 times/day days 3-7 Referrals: [facility] [Physician] - Print Language: [place]
[2023-12-23 18:00] VITALS: BP 106/65; PULSE 74; RESP 16; TEMP 37.2; O2SAT 100
[2023-12-23] MEDS: diphenhydrAMINE HCL 25 MG CAPSULE PO (20:35)
[2023-12-23] MEDS: predniSONE 20 MG TABLET 40 MG PO (20:35)
[2023-12-23 20:37] VITALS: BP 102/66; PULSE 72; RESP 17; TEMP 36.9; O2SAT 98
--- NOTE | 2023-12-23 20:40 | PC.NURSE ---
patient a&ox3, vss pt medicated for hives per order pt understands discharge instructions and will discharge home to follow up with pcp
[2023-12-23 20:41] VITALS: BP 102/66; PULSE 72; RESP 17; TEMP 36.9; O2SAT 98
== END 2023-12-23 20:42 | disposition home or self-care (01) ==
PROVIDERS: Emergency Provider Emergency Medicine
DX: L50.9 Urticaria, unspecified (principal)
CPT/HCPCS: 99283